=== PATIENT | male | born 1955 | race Caucasian/White ===

== ENCOUNTER 2023-08-30 20:19 | Emergency (ER) | payer MEDICARE, MEDICAID | END 2023-08-30 21:07 | disposition home or self-care (01) | LOC: JP.ED 20:19 | DX: T16.1XXA Foreign body in right ear, initial encounter (principal); E78.00 Pure hypercholesterolemia, unspecified; Z79.899 Other long term (current) drug therapy; W44.8XXA Other foreign body entering into or through a natural orifice, initial encounter | CPT/HCPCS: 69200; 99282-25 ==